=== PATIENT | female | born 1945 | race Two or more races ===

== ENCOUNTER 2017-02-21 08:18 | Inpatient (IN) | payer MEDICARE, MEDICAID ==
[~2017-02-21] VITALS: Ht 175.3 cm; Wt 73.4 kg
[2017-02-21] MEDS ORDERED: AMIT50TA3 PO (08:25)
[2017-02-21] MEDS ORDERED: LEVO25TA9 PO (08:25)
[2017-02-21] MEDS ORDERED: ASPI-1182 PO (08:25)
[2017-02-21] MEDS ORDERED: METO50 PO (08:25)
[2017-02-21] MEDS ORDERED: ALBU8.5H8 IH (08:25)
[2017-02-21] MEDS ORDERED: LISI-661 PO (08:25)
[2017-02-21] MEDS ORDERED: OXYB5 PO (08:25)
[2017-02-21 09:12] LABS: ANION GAP 7 mmol/L (8-16); CALCIUM, TOTAL 9.7 mg/dL (8.8-10.5); CARBON DIOXIDE 30 mmol/L (22-29); CHLORIDE 104 mmol/L (98-107); CREATININE 0.91 mg/dL (0.60-1.30); GLOMERULAR FILTR. RATE CALC > 60 mL/min (>60); POTASSIUM 4.1 mmol/L (3.5-5.1); SODIUM SERUM 141 mmol/L (136-145); UREA NITROGEN, BLOOD 17 mg/dL (7-18)
[2017-02-21 09:17] LABS: BASOPHILS % (AUTO) 0.4 % (0.0-2.0); EOSINOPHILS % (AUTO) 2.2 % (1.0-6.0); HEMATOCRIT 41.1 % (36-46); HEMOGLOBIN 13.8 g/dL (12.0-16.0); LYMPHOCYTES # (AUTO) 2.4 K/uL (1.0-4.8); LYMPHOCYTES % (AUTO) 27.3 % (22.0-44.0); MEAN CORPUSCULAR HEMOGLOBIN 31.7 pg (26.0-34.0); MEAN CORPUSCULAR HGB CONC 33.5 G/dL (31.0-37.0); MEAN CORPUSCULAR VOLUME 95 fL (80-100); MONOCYTES # (AUTO) 0.4 K/uL (0.1-1.0); MONOCYTES % (AUTO) 4.8 % (2.0-9.0); NEUTROPHILS # (AUTO) 5.7 K/uL (1.8-7.7); NEUTROPHILS % (AUTO) 65.3 % (40.0-70.0); PLATELET COUNT (AUTO) 200 K/uL (150-450); RED BLOOD CELL COUNT(AUTO) 4.35 MIL/uL (4.00-5.20); RED CELL DISTRIBUTION WIDTH 14.2 % (11.5-14.5); WHITE BLOOD COUNT (AUTO) 8.7 K/uL (4.5-11.0)
[2017-02-21 09:18] LABS: ALANINE AMINOTRANSFERASE 25 U/L (12-78); ALBUMIN 3.9 g/dL (3.4-5.0); ASPARTATE AMINOTRANSFERASE 30 U/L (15-37); BILIRUBIN,TOTAL 0.4 mg/dL (0.1-1.0)
[2017-02-21] MEDS ORDERED: LORazepam 2 MG TABLET PO PRN (10:15)
[2017-02-21] MEDS ORDERED: HALOPERIDOL 5 MG TABLET PO PRN (10:15)
[2017-02-21] MEDS ORDERED: ZOLPIDEM TARTRATE 10 MG TABLET PO PRN (10:15)
[2017-02-21 12:21] LABS: CHOL/HDL RATIO 3.2 (3.9-5.7); THYROID STIMULATING HORMONE 2.14 uIU/mL (0.36-3.74)
[2017-02-21 12:30] VITALS: BP 127/66
[2017-02-21 17:00] VITALS: BP 129/64
[2017-02-21] MEDS: AMITRIPTYLINE HCL 50 MG TABLET PO SCH (20:55)
[2017-02-22] MEDS ORDERED: LOPERAMIDE HCL 2 MG CAPSULE PO PRN (07:30)
[2017-02-22] MEDS ORDERED: ACETAMINOPHEN 325 MG TABLET PO PRN (07:30)
[2017-02-22] MEDS ORDERED: PETROLATUM,WHITE 71 GM JELLY TP PRN (07:30)
[2017-02-22] MEDS ORDERED: ALBUTEROL SULFATE HFA 90 MCG/PUFF 8 GM INHALER IH PRN (07:30)
[2017-02-22] MEDS ORDERED: CloNIDine HCL 0.1 MG TABLET PO PRN (07:30)
[2017-02-22] MEDS ORDERED: MAGNESIUM HYDROXIDE SUSPENSION 30 ML UDCUP PO PRN (07:30)
[2017-02-22] MEDS ORDERED: IBUPROFEN 600 MG TABLET PO PRN (07:30)
[2017-02-22] MEDS ORDERED: BACITRACIN 28.4 GM OINTMENT TP PRN (07:30)
[2017-02-22] MEDS ORDERED: ONDANSETRON HCL 4 MG TABLET PO PRN (07:30)
[2017-02-22] MEDS ORDERED: MAG HYDROX/AL HYDROX/SIMETH ES 30 ML SUSPENSION UDCUP PO PRN (07:30)
[2017-02-22] MEDS ORDERED: BENZOCAINE/MENTHOL LOZENGE [8 LOZENGES/PACKET] MM PRN (08:00)
[2017-02-22 08:14] VITALS: BP 109/53
[2017-02-22] MEDS: LISINOPRIL 10 MG TABLET PO SCH (08:31)
[2017-02-22] MEDS: ASPIRIN 81 MG EC TABLET PO SCH (08:32)
[2017-02-22] MEDS ORDERED: DENTURE ADHESIVE 68 GM CREAM DT PRN (09:45)
[2017-02-22 17:08] VITALS: BP 118/78
[2017-02-22] MEDS: AMITRIPTYLINE HCL 50 MG TABLET PO SCH (20:31)
[2017-02-22] MEDS: OXYBUTYNIN CHLORIDE 5 MG TABLET PO SCH (20:32)
[2017-02-23] MEDS: LEVOTHYROXINE SODIUM 25 MCG TABLET PO SCH (07:16)
[2017-02-23] MEDS: LISINOPRIL 10 MG TABLET PO SCH (08:49)
[2017-02-23] MEDS: ASPIRIN 81 MG EC TABLET PO SCH (08:49)
[2017-02-23 10:29] VITALS: BP 140/99
[2017-02-23 16:49] VITALS: BP 101/62
[2017-02-23] MEDS: AMITRIPTYLINE HCL 50 MG TABLET PO SCH (20:41)
[2017-02-23] MEDS: OXYBUTYNIN CHLORIDE 5 MG TABLET PO SCH (20:41)
[2017-02-24] MEDS: LEVOTHYROXINE SODIUM 25 MCG TABLET PO SCH (06:55)
[2017-02-24 08:00] VITALS: BP 125/75
[2017-02-24] MEDS: ASPIRIN 81 MG EC TABLET PO SCH (08:49)
[2017-02-24] MEDS: LISINOPRIL 10 MG TABLET PO SCH (08:49)
[2017-02-24] MEDS: OXYBUTYNIN CHLORIDE 5 MG TABLET PO SCH (20:28)
[2017-02-24] MEDS: AMITRIPTYLINE HCL 50 MG TABLET PO SCH (20:28)
[2017-02-25] MEDS: LEVOTHYROXINE SODIUM 25 MCG TABLET PO SCH (06:52)
[2017-02-25] MEDS: ASPIRIN 81 MG EC TABLET PO SCH (08:03)
[2017-02-25] MEDS: LISINOPRIL 10 MG TABLET PO SCH (08:04)
[2017-02-25 08:30] VITALS: BP 131/77
[2017-02-25 09:42] VITALS: BP 131/77
[2017-02-25 16:15] VITALS: BP 120/86
[2017-02-25] MEDS: AMITRIPTYLINE HCL 50 MG TABLET PO SCH (20:03)
[2017-02-25] MEDS: OXYBUTYNIN CHLORIDE 5 MG TABLET PO SCH (20:03)
[2017-02-26] MEDS: LEVOTHYROXINE SODIUM 25 MCG TABLET PO SCH (06:30)
[2017-02-26 08:10] VITALS: BP 126/73
[2017-02-26] MEDS: LISINOPRIL 10 MG TABLET PO SCH (08:22)
[2017-02-26] MEDS: ASPIRIN 81 MG EC TABLET PO SCH (08:22)
== END 2017-02-26 13:15 | disposition home or self-care (01) | DRG 885 ==
LOC: EEVIPCON 08:21 → EMS 08:21 → 3EX 11:18
DX: F33.2 Major depressive disorder, recurrent severe without psychotic features (principal); R45.851 Suicidal ideations; R45.850 Homicidal ideations; I10 Essential (primary) hypertension; E03.9 Hypothyroidism, unspecified; F41.9 Anxiety disorder, unspecified; G47.00 Insomnia, unspecified; J45.909 Unspecified asthma, uncomplicated; K21.9 Gastro-esophageal reflux disease without esophagitis; K59.00 Constipation, unspecified; R32 Unspecified urinary incontinence; Z90.710 Acquired absence of both cervix and uterus; Z88.5 Allergy status to narcotic agent
CPT/HCPCS: 84439; 84443; 99285; G0480